=== PATIENT | female | born 1955 | race Caucasian/White ===

== ENCOUNTER 2017-03-01 02:02 | Inpatient (IN) | payer MEDICARE ==
--- NOTE | ~2017-03-01 | CR72 ---
[facility] A Service of [facility] RADIOLOGY TEXT RESULTS PATIENT: VIRGILIO GANN LOCATION: [place] [address] : [birth year] UNIT #: [id number] AGE: [address]: Altagracia Ramirez MD SEX: F ORDER DR: [id number] [facility] [address] [place], [place] [address] [id number] I MR#: [id number] Acc #: [id number] NAME: VIRGILIO GANN : 1955 SEX: F STUDY DATE/TIME: 03/04/2017 5:47 UNIT: [facility] ROOM: [facility] STUDY DESCRIPTION: CR Chest Single View Portable Attending Physician: Altagracia Ramirez M.D. Ordering Physician: Beti Fields M.D. Primary Care Physician: Tahir Brar M.D. MEDICAL IMAGING REPORT This report is preliminary unless electronic signature is present REVISED REPORT SEE ADDENDUM EXAM Portable AP view of the chest. COMPARISON March 03, 2017; March 02, 2017; and August 22, 2016. INDICATIONS 61-year-old female with dyspnea and low oxygen saturation for 3 days. Respiratory failure. FINDINGS AND IMPRESSION When comparing to chest radiograph of August 21, 2016; interstitial prominence throughout the lungs appears grossly stable. There is stable top normal heart size. Lungs are better aerated from yesterday. No pleural effusion or evidence of pneumothorax. No consolidative pneumonia. Lung opacities may be chronic. Correlation to exclude signs of pneumonia recommended. Dictated by... Selwyn Guy M.D. MANUEL/yohan TD: 03/04/2017 09:24 JOB #: [id number] ADDENDUM [facility] A Service of [facility] RADIOLOGY TEXT RESULTS PATIENT: VIRGILIO GANN LOCATION: [place] [address] : [birth year] UNIT #: [id number] AGE: [address]: Altagracia Ramirez MD SEX: F ORDER DR: Better demonstrated on radiographs of the right shoulder on March 01, 2017; there is a comminuted fracture at the junction of the right humeral head and neck, which is grossly stable. There is mild displacement, but no evidence of dislocation. Dictated by... Selwyn Guy M.D. THIS IS AN ELECTRONICALLY VERIFIED REPORT Selwyn Guy M.D. at 03/12/2017 8:52 PM MANUEL/yohan TD: 03/04/2017 09:28 JOB #: [id number] CC: Sonancy/invision Please Delete MEDICAL IMAGING REPORT Page 1 of 1 COPY
--- NOTE | ~2017-03-01 | CR173 ---
[facility] A Service of [facility] RADIOLOGY TEXT RESULTS PATIENT: VIRGILIO GANN LOCATION: [place] [address] : [birth year] UNIT #: [id number] AGE: [address]: Altagracia Ramirez MD SEX: F ORDER DR: [id number] [facility] [address]. [place], [place] [address] [id number] E MR#: [id number] Acc #: [id number] NAME: VIRGILIO GANN : 1955 SEX: F STUDY DATE/TIME: 03/01/2017 3:01 UNIT: [facility] ROOM: STUDY DESCRIPTION: CR Knee 3 Views Rt Attending Physician: Ethan Cool Aprn Ordering Physician: Ed Steven Ren M.D. Primary Care Physician: Tahir Brar M.D. MEDICAL IMAGING REPORT This report is preliminary unless electronic signature is present EXAM Right knee INDICATION Right knee pain after fall tonight. FINDINGS AP, lateral and sunrise views of the right knee were obtained. The right total knee prosthesis is present. There is no fracture identified. There is no effusion visible. IMPRESSION Previous right knee replacement, otherwise normal. Dictated by... Amadeo Larkin M.D. THIS IS AN ELECTRONICALLY VERIFIED REPORT Amadeo Larkin M.D. at 03/01/2017 1:39 PM CLARIBEL/estefania TD: 03/01/2017 04:10 JOB #: [id number] MEDICAL IMAGING REPORT Page 1 of 1 COPY
--- NOTE | ~2017-03-01 | CR94 ---
[facility] A Service of [facility] RADIOLOGY TEXT RESULTS PATIENT: VIRGILIO GANN LOCATION: [facility] : 57 UNIT #: [id number] AGE: [address]: Altagracia Ramirez MD SEX: F ORDER DR: [id number] [facility] [address]. [place], [place] [address] [id number] E MR#: [id number] Acc #: [id number] NAME: VIRGILIO GANN : 1955 SEX: F STUDY DATE/TIME: 03/01/2017 3:19 UNIT: [facility] ROOM: STUDY DESCRIPTION: CR Elbow Min 3 Views Rt Attending Physician: Ethan Cool Aprn Ordering Physician: Ed Steven Ren M.D. Primary Care Physician: Tahir Brar M.D. MEDICAL IMAGING REPORT This report is preliminary unless electronic signature is present EXAM Right elbow INDICATION Pain after fall tonight. FINDINGS AP and lateral examination of the elbow shows satisfactory articulation of the humerus with the proximal radius and ulna. There is no identifiable fracture, dislocation, joint effusion, or radiopaque foreign body in the soft tissues. IMPRESSION Normal elbow. Dictated by... Amadeo Larkin M.D. THIS IS AN ELECTRONICALLY VERIFIED REPORT Amadeo Larkin M.D. at 03/01/2017 1:39 PM CLARIBEL/estefania TD: 03/01/2017 04:13 JOB #: [id number] MEDICAL IMAGING REPORT Page 1 of 1 COPY
--- NOTE | ~2017-03-01 | CR72 ---
[facility] A Service of [facility] RADIOLOGY TEXT RESULTS PATIENT: VIRGILIO GANN LOCATION: [facility] 469- : [birth year] UNIT #: [id number] AGE: [address]: Altagracia Ramirez MD SEX: F ORDER DR: [id number] [facility] [address] [facility]. [place], [place] [address] [id number] I MR#: [id number] Acc #: [id number] NAME: VIRGILIO GANN : 1955 SEX: F STUDY DATE/TIME: 03/06/2017 5:32 UNIT: [facility] ROOM: [facility] STUDY DESCRIPTION: CR Chest Single View Portable Attending Physician: Altagracia Ramirez M.D. Ordering Physician: Beti Fields M.D. Primary Care Physician: Tahir Brar M.D. MEDICAL IMAGING REPORT This report is preliminary unless electronic signature is present EXAM AP portable chest. Date: 03/06/2017 HISTORY Respiratory failure, shortness breath and weakness for 5 days. Status post fall with shoulder fracture on 03/01/2017. COMPARISON AP portable chest 03/04/2017. FINDINGS Stable generalized mild cardiomediastinal enlargement. No dense lung consolidative changes are identified. There are mild interstitial thickening predominantly lung bases, not thought to be significantly changed compared to a more remote 08/22/2016 examination. No pleural effusion or pneumothorax is seen. Fracture of the right humeral head/neck again noted. IMPRESSION 1. Stable mild generalized cardiomediastinal enlargement. No acute chest findings. Chronic-appearing interstitial thickening in the bases. 2. Fracture of the right humeral head, neck again noted. Dictated by... Jessika Anthony M.D. THIS IS AN ELECTRONICALLY VERIFIED REPORT Jessika Anthony M.D. at 03/07/2017 2:00 PM LLH/gz [facility] A Service of [facility] RADIOLOGY TEXT RESULTS PATIENT: VIRGILIO GANN LOCATION: [facility] [id number] : [birth year] UNIT #: [id number] AGE: [address]: Altagracia Ramirez MD SEX: F ORDER DR: TD: 03/06/2017 11:14 JOB #: [id number] MEDICAL IMAGING REPORT Page 1 of 1 COPY
--- NOTE | ~2017-03-01 | CR142 ---
[facility] A Service of [facility] RADIOLOGY TEXT RESULTS PATIENT: VIRGIILO GANN LOCATION: [place] [address] : 57 UNIT #: [id number] AGE: [address]: Altagracia Ramirez MD SEX: F ORDER DR: [id number] [facility] [address] [facility]. [place], [place] [address] [id number] E MR#: [id number] Acc #: [id number] NAME: VIRGILIO GANN : 1955 SEX: F STUDY DATE/TIME: 03/01/2017 2:58 UNIT: [facility] ROOM: STUDY DESCRIPTION: CR Hand Min 3 Views Rt Attending Physician: Ethan Cool Aprn Ordering Physician: Ed Steven Ren M.D. Primary Care Physician: Tahir Brar M.D. MEDICAL IMAGING REPORT This report is preliminary unless electronic signature is present EXAM Right hand INDICATION Right hand pain after fall tonight. FINDINGS 3 views of the right hand were obtained. There is a metal plate and screws in the first metacarpal bone. No acute fracture is identified. IMPRESSION No evidence of acute injury. Dictated by... Amadeo Larkin M.D. THIS IS AN ELECTRONICALLY VERIFIED REPORT Amadeo Larkin M.D. at 03/01/2017 1:39 PM CLARIBEL/estefania TD: 03/01/2017 04:02 JOB #: [id number] MEDICAL IMAGING REPORT Page 1 of 1 COPY
--- NOTE | ~2017-03-01 | HP ---
Unit #: [id number] #: [id number] Patient: VIRGILIO GANN [id number] [facility] [address]. [place], [place] [address] [id number] I MR#: [id number] NAME: VIRGILIO GANN ROOM: [address] Age: 61 Sex: F Admission Date: 03/01/2017 : 1955 Attending Physician: Altagracia Ramirez M.D. Primary Care Physician: Tahir Brar M.D. HISTORY AND PHYSICAL DIAGNOSIS ON ADMISSION Right humeral fracture. HISTORY OF PRESENT ILLNESS 61-year-old female presented to [facility] with right arm pain. As per patient, she is getting her apartment fixed and is living in a hotel these days. She stated that at night she woke up to get to the restroom and slipped on her oxygen tubing and fell on right side. The patient was brought to the ER and workup was done and she was diagnosed with right humeral fracture. ER physician spoke with Dr. Lew's group and stated she was admitted to be evaluated by Dr. Power. The patient is currently complaining of right arm pain which is sharp, constant, nonradiating, severe, aggravated with slight movement or touch, relieved partially with pain medicine and associated weakness. She denies any headache or visual problem. There is no sore throat, sinus congestion or skin rash. The patient denies headache or visual problems. There is no recent weight loss or loss of appetite. The patient stated that her knee pain and neck pain is better. The rest of the review of systems is negative. PAST MEDICAL HISTORY 1. Severe COPD. 2. Chronic respiratory failure. The patient is on 6 L of O2. 3. Type 2 diabetes mellitus. 4. Gastroesophageal reflux disease. 5. Hypertension. 6. History of right colon mass, status post colectomy. 7. 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 The patient is on Coumadin. PAST SURGICAL HISTORY 1. The patient has history of right colectomy. 2. 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 3. Left foot surgery. 4. Left arm surgery. 5. Right knee replacement. 6. Hysterectomy. ALLERGIES Patient is allergic to sulfa and codeine. HOME MEDICATIONS The patient is on: Unit #: [id number] #: [id number] Patient: VIRGILIO GANN 1. Novolin N 70 units subcu b.i.d. 2. NovoLog 20 units t.i.d. 3. Lipitor 40 mg daily. 4. Coumadin 3 mg p.o. daily. 5. Lasix 40 mg daily. 6. Glucophage 500 mg b.i.d. 7. Atenolol 50 mg daily. 8. Lyrica 75 mg b.i.d. 9. Effexor 225 mg p.o. daily. 10. Potassium 20 mEq p.o. b.i.d. 11. Seroquel 200 mg p.o. q. h.s. 12. Flexeril 10 mg p.o. q.8 hours. 13. Symbicort 80/4.5 two puffs b.i.d. 14. ProAir two puffs q.4 hours p.r.n. SOCIAL HISTORY The patient is . She quit smoking around three years ago. Drinking. FAMILY HISTORY Positive for COPD. PHYSICAL EXAMINATION GENERAL: Patient is lying comfortably in bed, not in any obvious acute distress. VITAL SIGNS: Temperature 98 degrees, pulse is 105/minute, respiratory rate is 18/minute and blood pressure is 125/75. HEENT: No conjunctival congestion. Sclerae is not icteric. NECK: Supple. Trachea is central. RESPIRATORY: Decreased breath sounds bilaterally. There are no wheezes or crackles. HEART: Regular rate and rhythm. S1, S2. ABDOMEN: Soft, nontender. Bowel sounds are present in all four quadrants. NEUROLOGICAL: The patient is alert to person, place and time. The patient's strength is 5 out of 5 on left side and 4+ on right lower extremity and right upper extremity was not tested. SKIN: Warm and dry. DIAGNOSTIC STUDIES LABORATORY: Labs on admission - the patient's creatinine is 0.8, sodium is 138, potassium is 3.0. WBC 13.4, hemoglobin is 10.5, platelets is 287. IMAGING: CT scan of cervical spine reveals postop changes in left lower cervical spine as well as degenerative changes in the mid cervical spine. CT scan of head did not reveal any intracranial findings. Patient's right elbow x-ray was normal. Right knee x-ray revealed previous right knee replacement, otherwise normal. Right hand x-ray did not reveal any evidence of acute injury. Right shoulder x-ray revealed the humeral head was fractured and fragmented in at least two, if not three, parts. The patient's INR today was 1.9. Unit #: [id number] #: [id number] Patient: VIRGILIO GANN ASSESSMENT AND PLAN 61-year-old patient presented with fall and has right humeral fracture. 1. Right humeral fracture: Dr. Power will see patient in consultation. 2. Chronic respiratory failure. 3. Chronic obstructive pulmonary disease: Will request (1) to see patient in consultation for perioperative management. 4. Hyperlipidemia: Will continue home medications. 5. History of deep venous thrombosis: Will hold on Coumadin for now. 6. Insulin dependent diabetes mellitus: Start patient on half dose of Novolin NPH for now. 7. Depression: Will continue home medication. 8. Hypertension: Patient has already received (2) with sips of water. 9. Hypokalemia: Patient will receive potassium. The plan was discussed in detail with patient and her . They showed complete understanding. Dictated by Bia Gambino/trish TD: 03/01/2017 12:34 JOB #: [id number] HISTORY AND PHYSICAL Page 1 of 1 X Altagracia Ramirez MD X HISTORY AND PHYSICAL
--- NOTE | ~2017-03-01 | CO ---
Unit #: [id number] #: [id number] Patient: VIRGILIO GANN [id number] [address] [address] [id number] I MR#: [id number] NAME: VIRGILIO GANN ROOM: 11760 Age: 61 Sex: F Admission Date: 03/01/2017 : 1955 Attending Physician: Altagracia Ramirez M.D. Primary Care Physician: Tahir Brar M.D. CONSULTATION REPORT REASON FOR CONSULT Right shoulder fracture. HISTORY OF PRESENT ILLNESS Ms. Tyler Su is a 61-year-old female that presents today with a right fractured right humeral head. The patient reports that she tripped on her oxygen while staying at a motel. She has been waiting for some work to be done on her apartment complex. She lost her balance, tripped and landed on the right upper extremity. The patient reports pain at the right shoulder. No radiation of pain. No numbness or tingling. PAST MEDICAL HISTORY Significant for: 1. COPD. 2. Chronic respiratory failure. 3. Diabetes. 4. GERD. 5. Hypertension. 6. Right colon mass. 7. Right lower extremity DVT. MEDICATIONS Include: 1. NovoLog. 2. Novolin. 3. Lipitor. 4. Coumadin. 5. Lasix. 6. Glucophage. 7. Atenolol. 8. Lyrica. 9. Effexor. 10. Potassium. 11. Seroquel. 12. Flexeril. 13. Symbicort. 14. ProAir. ALLERGIES Sulfa and codeine. SURGICAL HISTORY Significant for: 1. Right colectomy. Unit #: [id number] #: [id number] Patient: VIRGILIO GANN 2. Abdominal surgery. 3. Left foot surgery. 4. Left arm surgery. 5. Right knee replacement. 6. Hysterectomy. SOCIAL HISTORY The patient lives at home. She is a former smoker and quit about three years ago. She does drink alcohol. FAMILY HISTORY Insignificant. REVIEW OF SYSTEMS Ten organ systems reviewed. Patient denies any blurry vision, congestion, sore throat, shortness of breath, chest pain, abdominal pain, urinary incontinence, numbness, tingling, skin ulcers or lesions, anxiety/depression. Positive for joint pain. PHYSICAL EXAMINATION GENERAL: No acute distress. Alert and oriented x3. VITALS: Temp 98, pulse 116, blood pressure 146/95. HEENT: PERRLA, nonicteric sclerae. THORAX: Trachea midline. No thyromegaly. CARDIAC: S1, S2. No extra sounds, no murmurs. LUNGS: Clear to auscultation without rales or rhonchi. ABDOMEN: Nondistended, nontender. Positive bowel sounds. : Deferred. MUSCULOSKELETAL: 2+ radial bilateral pulses. Tenderness to palpation over the right glenohumeral joint. No erythema or ecchymoses. Range of motion is deferred. NEUROLOGICAL: II-XII intact. S SKIN: Cool and dry. PSYCH: Good insight, good judgement. Mood and affect are pleasant. DIAGNOSTIC STUDIES IMAGING: X-rays of the right shoulder ordered and reviewed and shows a humeral head fracture. Right hand x-rays reveal no fractures. Right knee x-rays reveal no fractures. Right elbow x-rays reveal no fractures. ASSESSMENT Right humeral head fracture. PLAN Discussed the treatment options with both Dr. Power as well as the patient and family at the bedside. Dr. Power has recommended following up in one week as an outpatient to determine if surgery is required. Will currently wait for her swelling to go down and perform another x-ray in one week in our office. We will treat her with a sling at this time. She is to be non-weight bearing at the right upper extremity. Patient should remain in a sling at all times except for hygiene care. We will follow up in the office in one week. Unit #: [id number] #: [id number] Patient: VIRGILIO GANN Dictated by... Roxana Stark PAvis. for Guy Power M.D. JARVIS/trish TD: 03/01/2017 13:16 JOB #: [id number] CONSULTATION REPORT Page 1 of 1 X Roxana Stark CONSULTATION REPORT
--- NOTE | ~2017-03-01 | DS ---
Unit #: [id number] #: [id number] Patient: VIRGILIO GANN [id number] [address] [address] [id number] I MR#: [id number] NAME: VIRGILIO GANN ROOM: 469 Age: 61 Sex: F Admission Date: 03/01/2017 : 1955 Discharge Date: Attending Physician: Altagracia Ramirez M.D. Primary Care Physician: Tahir Brar M.D. DISCHARGE SUMMARY DIAGNOSIS ON ADMISSION Right humeral fracture. DIAGNOSES ON DISCHARGE 1. Right humeral fracture. 2. Acute on chronic respiratory failure, improved. 3. Chronic obstructive pulmonary disease exacerbation, improved. 4. Type 2 diabetes mellitus. 5. Gastroesophageal reflux disease. 6. Hypertension. 7. History of right lower extremity deep venous thrombosis on Coumadin. 8. Anemia. 9. Anxiety disorder. CONSULTATIONS 1. Dr. Power in orthopedic consultation. 2. Dr. Beti Fields and Dr. Perez in pulmonary consultation. DIAGNOSTIC STUDIES LABORATORY: Patient's creatinine was 0.7 today, sodium 133, potassium 4.8. WBC 19.8, hemoglobin 9.8, platelet count 321,000. INR was 2. IMAGING: CT scan of head was normal. Right elbow x-ray was normal. Right shoulder x-ray revealed a humeral head fracture fragmented in at least two or three pieces. CT scan of cervical spine revealed postoperative changes in left lower cervical spine as well as degenerative changes in mid cervical spine. There were no acute abnormalities. HOSPITAL COURSE A 61-year-old female was admitted to [facility] with right shoulder fracture. Details are as per admission H and P. Right humeral fracture: Patient was seen by orthopedic in consultation who thought patient is at high risk for surgery and has recommended nonoperative treatment. Acute on chronic respiratory failure: Patient is on 6 L of home O2 but her respiratory status deteriorated and she was transferred to ICU. Patient was seen by Dr. Perez in consultation and was treated with IV Unit #: [id number] #: [id number] Patient: VIRGILIO GANN Solu-Medrol and mini neb treatments. Patient's condition has improved. History of DVT: Patient is on Coumadin. Today patient is comfortable, is not in any acute distress. PHYSICAL EXAMINATION HEENT: Revealed no conjunctival congestion. Sclerae is nonicteric. NECK: Supple. Trachea central. RESPIRATORY: Revealed decreased breath sounds bilaterally. There are no wheezes or crackles. HEART: Regular rate and rhythm. S1, S2. ABDOMEN: Soft, nontender. Bowel sounds are present in all four quadrants. EXTREMITIES: Patient has right upper extremity sling. SKIN: Warm and dry. RECOMMENDATIONS ON DISCHARGE Condition is stable. Activity is as tolerated. MEDICATIONS 1. ProAir inhaler two puffs q.4 hours p.r.n. 2. Combivent mini neb treatment q.4 hours scheduled. 3. Symbicort 80/4.5 two puffs b.i.d. 4. Coumadin 3 mg p.o. daily. 5. Lyrica 75 mg p.o. b.i.d. 6. Effexor 225 mg p.o. daily. 7. Glucophage 500 mg p.o. daily. 8. Seroquel 50 mg p.o. nightly. 9. Atenolol 50 mg p.o. daily. 10. Dulcolax suppository 10 mg rectally daily p.r.n. 11. MiraLax 10 mg p.o. daily. 12. Lasix 40 mg p.o. daily. 13. Lipitor 40 mg p.o. nightly. 14. Humulin N 60 units NPH b.i.d. before meals. Patient's home dose is 70, so if Accu-Cheks are still high, kindly increase the dose. 15. NovoLog 20 units subcutaneous t.i.d. with meals. 16. Kindly do insulin sliding scale as per facility. Accu-Cheks a.c. and nightly. 17. Hydrocodone 5 mg one p.o. q.6 hours p.r.n. for pain. 18. Potassium 20 mEq p.o. daily. 19. Flexeril 10 mg p.o. q.8 hours p.r.n. for pain. FOLLOWUP 1. Patient is advised to follow up with Dr. Power this week on Monday, March 10, 2017. 2. Patient is discharged on oxygen 5 L via Oxymizer. At home, she uses 6 L via nasal cannula. Kindly, gradually wean patient's O2 off. Patient's box office clerk is Dr. Perez and Dr. Beti Fields. Patient can see them if needed. Please feel free to call us if there are any questions regarding this hospitalization. The plan has been discussed with orthopedics and pulmonology. The total time spent on discharge was 35 minutes. The prescription for Lyrica and [place] is written. Unit #: [id number] #: [id number] Patient: MAIN VIRGILIO RED Dictated by... Bia Gambino/shahla TD: 03/07/2017 11:51 JOB #: [id number] DISCHARGE SUMMARY Page 1 of 1 X Altagracia Ramirez MD X DISCHARGE SUMMARY
--- NOTE | ~2017-03-01 | CR72 ---
[facility] A Service of [facility] RADIOLOGY TEXT RESULTS PATIENT: VIRGILIO GANN LOCATION: [place] [address] : [birth year] UNIT #: [id number] AGE: [address]: Altagracia Ramirez MD SEX: F ORDER DR: [id number] [facility] [address] [facility] [place], [place] [address] [id number] I MR#: [id number] Acc #: [id number] NAME: VIRGILIO GANN : 1955 SEX: F STUDY DATE/TIME: 03/02/2017 0:28 UNIT: [facility] ROOM: [facility] STUDY DESCRIPTION: CR Chest Single View Portable Attending Physician: Altagracia Ramirez M.D. Ordering Physician: Gui Perez M.D. Primary Care Physician: Tahir Brar M.D. MEDICAL IMAGING REPORT This report is preliminary unless electronic signature is present EXAM Portable chest, 03/02/2017 INDICATION Low oxygen saturation and shortness of air since yesterday. COMPARISON 08/22/2016 FINDINGS A portable view of the chest was obtained. The heart size and vascularity are normal and the lungs are clear. There are low lung volumes. Bones are unremarkable. IMPRESSION Low lung volumes. No active disease. Dictated by... Amadeo Larkin M.D. THIS IS AN ELECTRONICALLY VERIFIED REPORT Amadeo Larkin M.D. at 03/02/2017 5:56 AM CLARIBEL/estefania TD: 03/02/2017 03:16 JOB #: [id number] MEDICAL IMAGING REPORT Page 1 of 1 COPY
--- NOTE | ~2017-03-01 | CR72 ---
[facility] A Service of [facility] & [facility] RADIOLOGY TEXT RESULTS PATIENT: VIRGILIO GANN LOCATION: [address] : [birth year] UNIT #: [id number] AGE: [address]: Altagracia Ramirez MD SEX: F ORDER DR: [id number] [facility] [address] [place], [place] [address] [id number] MR#: [id number] Acc #: [id number] NAME: VIRGILIO GANN : 1955 SEX: F STUDY DATE/TIME: 03/03/2017 5:17 UNIT: [facility] ROOM: [facility] STUDY DESCRIPTION: CR Chest Single View Portable Attending Physician: Altagracia Ramirez M.D. Ordering Physician: Beti Fields M.D. Primary Care Physician: Tahir Brar M.D. MEDICAL IMAGING REPORT This report is preliminary unless electronic signature is present EXAM Portable chest INDICATION Respiratory failure. Dropping oxygen saturation for 2 days. FINDINGS A portable view of the chest was obtained. The heart size and vascularity are normal. The lungs are clear. The comparison is from yesterday. IMPRESSION No change. No active disease. Dictated by... Amadeo Larkin M.D. THIS IS AN ELECTRONICALLY VERIFIED REPORT Amadeo Larkin M.D. at 03/03/2017 1:55 PM CLARIBEL/virgilio TD: 03/03/2017 06:29 JOB #: [id number] MEDICAL IMAGING REPORT Page 1 of 1 COPY
--- NOTE | ~2017-03-01 | CT71 ---
[facility] A Service of [facility] RADIOLOGY TEXT RESULTS PATIENT: VIRGILIO GANN LOCATION: [facility] [address] : [birth year] UNIT #: [id number] AGE: [address]: Altagracia Ramirez MD SEX: F ORDER DR: [id number] [facility] [address] [place], [place] [address] [id number] E MR#: [id number] Acc #: [id number] NAME: VIRGILIO GANN : 1955 SEX: F STUDY DATE/TIME: 03/01/2017 4:36 UNIT: [facility] ROOM: STUDY DESCRIPTION: CT Head Wo Contrast Attending Physician: Ethan Cool Aprn Ordering Physician: Ethan Cool Aprn Primary Care Physician: Tahir Brar M.D. MEDICAL IMAGING REPORT This report is preliminary unless electronic signature is present EXAM CT scan of the head without contrast INDICATION Tripped and fell at home. Head trauma. Headache. Happened today. COMPARISON 01/07/2011. FINDINGS Axial noncontrast images were obtained from the skull base to the vertex. This CT examination was performed with one or more of the following radiation dose reduction techniques: automatic exposure control, adjustment of mA and/or kV according to patient size, and iterative reconstruction. Ventricular size and configuration are normal. There is no evidence of acute infarct or hemorrhage. There are no extra-axial fluid collections. No mass lesion or mass effect is seen. There are no skull fractures. IMPRESSION Normal noncontrast head CT. Dictated by... Amadeo Larkin M.D. THIS IS AN ELECTRONICALLY VERIFIED REPORT Amadeo Larkin M.D. at 03/01/2017 1:39 PM CLARIBEL/virgilio TD: 03/01/2017 06:14 [facility] A Service of [facility] RADIOLOGY TEXT RESULTS PATIENT: VIRGILIO GANN LOCATION: [facility] [address] : [birth year] UNIT #: [id number] AGE: [address]: Altagracia Ramirez MD SEX: F ORDER DR: JOB #: [id number] MEDICAL IMAGING REPORT Page 1 of 1 COPY
--- NOTE | ~2017-03-01 | CR230 ---
[facility] A Service of [facility] & [facility] RADIOLOGY TEXT RESULTS PATIENT: VIRGILIO GANN LOCATION: [place] [address] : [birth year] UNIT #: [id number] AGE: [address]: Altagracia Ramirez MD SEX: F ORDER DR: [id number] [facility] [address] [place], [place] [address] [id number] E MR#: [id number] Acc #: [id number] NAME: VIRGILIO GANN : 1955 SEX: F STUDY DATE/TIME: 03/01/2017 2:54 UNIT: [facility] ROOM: STUDY DESCRIPTION: CR Shoulder Min 2 View Rt Attending Physician: Ethan Cool Aprn Ordering Physician: Ed Steven Ren M.D. Primary Care Physician: Tahir Brar M.D. MEDICAL IMAGING REPORT This report is preliminary unless electronic signature is present EXAM Right shoulder INDICATIONS Shoulder pain after falling tonight. FINDINGS 3 views of the right shoulder were obtained. There is a comminuted fracture involving the humeral head. There is no dislocation. IMPRESSION The humeral head has been fractured and fragmented in at least 2 if not 3 pieces. There is no dislocation. Dictated by... Amadeo Larkin M.D. THIS IS AN ELECTRONICALLY VERIFIED REPORT Amadeo Larkin M.D. at 03/01/2017 1:39 PM CLARIBEL/estefania TD: 03/01/2017 03:59 JOB #: [id number] MEDICAL IMAGING REPORT Page 1 of 1 COPY
--- NOTE | ~2017-03-01 | CO ---
Unit #: [id number] #: [id number] Patient: VIRGILIO GANN [id number] [place] [id number] [facility]. [place], [place] [address] [id number] I MR#: [id number] NAME: VIRGILIO GANN ROOM: [facility] Age: 61 Sex: F Admission Date: 03/01/2017 : 1955 Attending Physician: Altagracia Ramirez M.D. Primary Care Physician: Tahir Brar M.D. CONSULTATION REPORT HISTORY OF PRESENT ILLNESS This is a pleasant lady with a history of COPD severe, she is on 6 L of oxygen continuously. She now due to a bed bug infestation the patient has had to move out of her house into a hotel room. At the hotel, the patient states that she woke up, going to the restroom, she slipped on her oxygen tubing, fell on her right side. She developed a right humeral fracture. The Orthopedic doctors evaluated her for surgery. She is having very severe pain and is requiring significant doses of pain medicine 4 mg. The patient denies any sort of headache or visual issues. CT scan of the head is negative. No sore throat, sinus congestion, or skin rash. She denies any sort of sick contacts. No weight changes or loss of appetite. She had a spinal series, which did not show any acute fractures. 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 The patient is currently on Coumadin. PAST SURGICAL HISTORY The patient has a history of right colectomy, abdominal surgery complicated by abdominal wound, fistula, left foot surgery, left arm surgery, right knee replacement, hysterectomy. ALLERGIES The patient is allergic to sulfa and codeine. HOME MEDICATIONS Include Novolin N 70 units subcu b.i.d., NovoLog 20 units subcu t.i.d. before meals, Lipitor 40 mg daily, Coumadin 3 mg p.o. daily, Lasix 40 mg daily, Glucophage 500 mg b.i.d., Atenolol 50 mg daily, Lyrica 75 mg b.i.d., potassium 20 mEq daily, venlafaxine 255 mg p.o. daily, quetiapine 200 mg at bedtime, Flexeril 10 mg at bedtime, Symbicort 2 puffs b.i.d., ProAir RespiClick one puff every 4 hours as needed. SOCIAL HISTORY The patient is . She quit smoking approximately 3 years ago. Occasional alcohol use. FAMILY HISTORY Positive for COPD. PHYSICAL EXAMINATION GENERAL: The patient appears more comfortable, but is now somewhat Unit #: [id number] #: [id number] Patient: VIRGILIO GANN confused, although she is still able to give her name and date of and is oriented x3. VITAL SIGNS: T-current 98.3, pulse 89, respiratory rate 16, blood pressure 138/64. HEENT: No conjunctival injection. No icterus. NECK: No JVD. CHEST: Shows decreased breath sounds bilaterally. CARDIOVASCULAR: Regular rate. No gallop. ABDOMEN: Soft, nontender, and nondistended. EXTREMITIES: Shows no evidence of edema. DIAGNOSTIC STUDIES LABORATORY RESULTS: Glucose has run between 125 to 168. IMAGING STUDIES: X-ray of shoulder shows a humeral fracture and fragmentation. Knee shows previous right knee replacement. CT head without contrast, this is normal. Cervical spine CT shows chronic arthritis. LABORATORY RESULTS: Basic metabolic; potassium 3.0, chloride 99, BUN and creatinine 10/0.8. White count 13.4, hemoglobin 10.5, platelets of 287. INR is 1.9. ASSESSMENT AND PLAN 1. Pre-op evaluation for humeral fracture. This is probably going to be done as an outpatient. The patient is at moderate risk with a 13.3% risk of postoperative complications. The Arozullah and Dorsey scale index is suggest between a 0.5 and 1% chance of postoperative respiratory failure; however, the patient requires significant oxygen requirements makes her high risk. 2. The patient's altered mental status likely secondary to pain medication that she is receiving. 3. Hypoxia while asleep may be secondary to obstructive sleep apnea. 4. Chronic obstructive pulmonary disease. We are going to continue inhalers, continue medications. I am going to see if we can get a blood gas in the morning. The patient's INR is therapeutic, so it is unlikely that there is a fairly worsening hypoxia is due to blood clot. Thank you very much for this consult and allowing us to participate in the care of this patient. Please page me at [phone] if you have any questions. Dictated by... Bia Vazquez/roberto TD: 03/02/2017 01:24 JOB #: [id number] Unit #: [id number] #: [id number] Patient: VIRGILIO GANN CONSULTATION REPORT Page 1 of 1 X Santy Fields MD X CONSULTATION REPORT
--- NOTE | ~2017-03-01 | CT52 ---
[facility] A Service of [facility] RADIOLOGY TEXT RESULTS PATIENT: VIRGILIO GANN LOCATION: [facility] 46[facility] : [birth year] UNIT #: [id number] AGE: [address]: Altagracia Ramirez MD SEX: F ORDER DR: [id number] [place] [id number] [facility]. [place], [place] [address] [id number] MR#: [id number] Acc #: [id number] NAME: VIRGILIO GANN : 1955 SEX: F STUDY DATE/TIME: 03/01/2017 4:45 UNIT: [facility] ROOM: STUDY DESCRIPTION: CT Cervical Spine Wo Cont Attending Physician: Ethan Cool Aprn Ordering Physician: Ethan Cool Aprn Primary Care Physician: Tahir Brar M.D. MEDICAL IMAGING REPORT This report is preliminary unless electronic signature is present EXAM CT scan of the neck INDICATION Tripped and fell at home today with neck pain. FINDINGS Axial 2 mm images were obtained through the cervical spine and sagittal and coronal reconstructions were generated. This CT examination was performed with one or more of the following radiation dose reduction techniques: automatic exposure control, adjustment of mA and/or kV according to patient size, and iterative reconstruction. The patient has undergone a unilateral laminectomy on the left likely to C6-7. There is no subluxation or fracture. There is disc space narrowing in the mid cervical spine. IMPRESSION Postoperative changes on the left in the lower cervical spine as well as degenerative change in the mid cervical spine. There is no acute abnormality. Dictated by... Amadeo Larkin M.D. THIS IS AN ELECTRONICALLY VERIFIED REPORT Amadeo Larkin M.D. at 03/01/2017 1:39 PM CLARIBEL/virgilio TD: 03/01/2017 06:16 JOB #: [id number] [facility] A Service [facility] RADIOLOGY TEXT RESULTS PATIENT: VIRGILIO GANN LOCATION: [place] [address] : [birth year] UNIT #: [id number] AGE: [address]: Altagracia Ramirez MD SEX: F ORDER DR: MEDICAL IMAGING REPORT Page 1 of 1 COPY
--- NOTE | ~2017-03-01 | BMI ---
[facility] Nutrition Therapy DATE: 03/02/17 Patient: VIRGILIO RED Physician: PAWAN Address: [address] [facility] Room/Bed: [address], Zip: [place] [address] Admit Date: 03/01/17 Date of : [birth year] Height: 5 2 Weight: 251 113.85 HIGH BMI NOTE: DX: 61 y/o female admitted for possible broken arm or shoulder ANTHROPOMETRICS: 5'2", 250# (113 kg), BMI 45 DIET: Consistent Carbohydrate INTERVENTION: 1. Consistent carbohydrate diet RECOMMENDATIONS: 1. Add healthy heart diet to current consistent carbohydrate diet in order to promote gradual weight loss towards a healthy BMI (19.0-25.0) or +/-10% IBW. RD will f/u per protocol. Respectfully, MARCO BIGGS, statistics intern Lilly Bowman MS, RD, LD Food and Nutritional Services [facility] cc: client file
[~2017-03-01 02:02] MED LIST: ADVAIR 2501 DISK W/D PO; ADVIL200 M1 PO; ALBUTEROL 0.5ML; ALBUTEROL17 GM INH; ANTIVERT PO; ASPIRIN EC81 M1 PO; ASPIRIN81 MG PO; ATENOLOL PO; ATENOLOL50 MG PO; ATIVAN0.5 MG PO; ATROVENT HFA12.9 GM INH; B COMPLEX1 CA1 PO; CERTAGEN PO; CLARITIN10 MG PO; COMBIVENT INH14.7 GM INH; COUMADIN3 MG PO; CRANBERRY200 MG PO; DAZIDOX10 MG PO; DONNATAL E16.2 MG/5 PO; DOXYCYCLINE PO; EFFEXOR XR PO; FISH OIL500 MG PO; FLEXERIL PO; FLEXERIL10 MG PO; FLONASE 0.05% N16 G1; GLUCOPHAGE500 M1 PO; GUAIFEN-P-EPHE480 ML PO; IBUPROFEN PO; IBUPROFEN800 MG PO; K-DUR20 ME2 PO; KCL PO; KLOR-CON PO; LASIX PO; LEVAQUIN750 MG PO; LIPITOR20 MG PO; LYRICA PO; LYRICA75 MG PO; METFORMIN HCL500 M1 PO; MICRO-K PO; MONTELUKAST SOD10 MG PO; MORGIDOX100 MG PO; MUCINEX DM1 TAB.SR . PO; NOVOLIN 70100 UNITS/ SUBQ; NOVOLOG100 U/ML SUBQ; OMEGA 3 PO; OMNICEF PO; OPANA5 MG PO; OTC SINUS MED; OTC SLEEP MED; OXYCODONE HCL5 MG PO; PERCOCET 51 UDTAB 5/ PO; PHENERGAN PO; PHENERGAN12.5 MG PO; PHENERGAN25 MG PO; PRAVACHOL PO; PRAVASTATIN SOD40 MG PO; PREDNISONE PO; PREDNISONE10 MG; PRILOSEC40 MG PO; PROAIR HFA8.5 GM PO; PROTONIX PO; QUETIAPINE FUM200 MG PO; ROBITUSSIN COU118 M8; ROBITUSSIN-DM120 ML PO; SEROQUEL XR200 MG PO; SEROQUEL50 MG PO; SYMBICORT INH; TAMIFLU75 M1 PO; TENORMIN50 MG PO; TRAMADOL HCL50 M2; ULTRAM PO; VENLAFAXINE HC150 MG PO; VENLAFAXINE HC225 MG PO; VICODIN 5/1 TAB 5/50 PO; VICODIN 5/500 T1 TAB PO; VITAMIN D250000 UNIT PO; VOLTAREN75 MG PO; WARFARIN SODIUM3 MG PO; ZESTORETIC 10/11 TAB PO; ZITHROMAX PO
[2017-03-01 04:41] LABS: INR 1.9; PARTIAL THROMBOPLASTIN TIME 28.7 SECONDS (23.5-31.3); PROTHROMBIN TIME (PATIENT) 21.1 SECONDS (9.6-11.5)
[2017-03-01] MEDS ORDERED: NOVOLOG100 U/ML SUBQ (05:51)
[2017-03-01] MEDS ORDERED: NOVOLIN N100 UNIT/1 SUBQ (05:51)
[2017-03-01] MEDS ORDERED: LIPITOR40 MG PO (05:52)
[2017-03-01] MEDS ORDERED: GLUCOPHAGE500 MG PO (05:52)
[2017-03-01] MEDS ORDERED: LASIX PO (05:52)
[2017-03-01] MEDS ORDERED: ATENOLOL50 MG PO (05:52)
[2017-03-01] MEDS ORDERED: COUMADIN PO (05:52)
[2017-03-01] MEDS ORDERED: LYRICA75 MG PO (05:53)
[2017-03-01] MEDS ORDERED: EFFER-K 20 MEQ20 MEQ PO (05:53)
[2017-03-01] MEDS ORDERED: QUETIAPINE FUM200 MG PO (05:53)
[2017-03-01] MEDS ORDERED: VENLAFAXINE HC225 MG PO (05:53)
[2017-03-01] MEDS ORDERED: SYMBICORT80 INH (05:54)
[2017-03-01] MEDS ORDERED: FLEXERIL10 MG PO (05:54)
[2017-03-01] MEDS ORDERED: PROAIR RESPICL90 MCG INH (05:54)
[2017-03-01 06:30] LABS: BASOPHIL# 0.1 X10e3 (0-0.3); BASOPHIL% 0.9 % (0-2.5); EOSINOPHIL# 0.2 X10e3 (0-0.7); EOSINOPHIL% 1.2 % (0.0-7.0); HEMATOCRIT 31.9 % (35.0-45.0); HEMOGLOBIN 10.5 gm/dL (12.0-16.0); LYMPHOCYTE# 2.2 X10e3 (1.0-3.5); LYMPHOCYTE% 16.4 % (17.0-45.0); MEAN CELL VOLUME 78.1 FL (83-96); MEAN CORPUSCULAR HEMOGLOBIN 25.7 PG (28-34); MEAN CORPUSCULAR HGB CONC 32.9 g/dL (30-36); MEAN PLATELET VOLUME 8.9 FL (6.5-11.5); MONOCYTE# 1.1 X10e3 (0-1.0); MONOCYTE% 8.5 % (3.0-12.0); NEUTROPHIL# 9.8 X10e3 (1.5-7.1); PLATELET COUNT 287 X10e3 (140-420); RED BLOOD COUNT 4.08 X10e (3.90-5.30); RED CELL DISTRIBUTION WIDTH 16.6 % (11.0-15.5); WHITE BLOOD COUNT 13.4 X10e3 (4.0-10.5)
[2017-03-01 06:47] LABS: BUN/CREATININE RATIO 12.5; CALCIUM SERUM 8.7 mg/dL (8.4-10.2); CREATININE SERUM 0.8 mg/dL (0.6-1.4); GLOM FILT RATE Estimated 80.2 mL/min (>60)
[2017-03-01 06:50] LABS: DIFF IND NO
[2017-03-02 03:23] LABS: BASOPHIL# 0.1 X10e3 (0-0.3); BASOPHIL% 0.6 % (0-2.5); DIFF IND YES; EOSINOPHIL# 0.1 X10e3 (0-0.7); EOSINOPHIL% 0.3 % (0.0-7.0); HEMATOCRIT 32.5 % (35.0-45.0); HEMOGLOBIN 10.2 gm/dL (12.0-16.0); LYMPHOCYTE# 2.7 X10e3 (1.0-3.5); LYMPHOCYTE% 17.2 % (17.0-45.0); MEAN CELL VOLUME 79.2 FL (83-96); MEAN CORPUSCULAR HEMOGLOBIN 24.9 PG (28-34); MEAN CORPUSCULAR HGB CONC 31.4 g/dL (30-36); MEAN PLATELET VOLUME 8.5 FL (6.5-11.5); MONOCYTE# 1.1 X10e3 (0-1.0); MONOCYTE% 6.7 % (3.0-12.0); NEUTROPHIL# 11.9 X10e3 (1.5-7.1); NEUTROPHIL% 75.2 % (40-75); PLATELET COUNT 341 X10e3 (140-420); RED BLOOD COUNT 4.11 X10e (3.90-5.30); RED CELL DISTRIBUTION WIDTH 16.5 % (11.0-15.5); WHITE BLOOD COUNT 15.9 X10e3 (4.0-10.5)
[2017-03-02 03:39] LABS: INR 2.1; PROTHROMBIN TIME (PATIENT) 22.5 SECONDS (10.0-11.7)
[2017-03-02 03:51] LABS: ANISOCYTOSIS SL; MICROCYTOSIS SL; PLATELET ESTIMATE NORMAL (NORMAL)
[2017-03-02 03:52] LABS: STOMATOCYTE PRESENT
[2017-03-02 03:55] LABS: BUN/CREATININE RATIO 16.66; CALCIUM SERUM 8.9 mg/dL (8.4-10.2); CREATININE SERUM 0.9 mg/dL (0.6-1.4); GLOM FILT RATE Estimated 69.5 mL/min (>60); POTASSIUM 4.3 mmol/L (3.5-5.1)
[2017-03-02 04:04] LABS: ARTERIAL BLOOD GAS PCO2 64.5 mmHg (35.0-45.0); ARTERIAL BLOOD GAS pH 7.317 (7.350-7.450)
[2017-03-02 04:05] LABS: ARTERIAL BLD GAS O2 SATURATION 98.9 % (90.0-100.0); ARTERIAL BLOOD GAS ART SITE LEFT BRACHIAL; ARTERIAL BLOOD GAS CARBOXY HB 0.6 %sat (0.0-9.0); ARTERIAL BLOOD GAS MET HB 0.9 %sat (0.0-2.0); ARTERIAL DRAW? YES
[2017-03-02 09:13] LABS: ARTERIAL BLD GAS O2 SATURATION 93.5 % (90.0-100.0); ARTERIAL BLOOD GAS CARBOXY HB 0.7 %sat (0.0-9.0); ARTERIAL BLOOD GAS HCO3 32.6 mmol/L; ARTERIAL BLOOD GAS MET HB 0.8 %sat (0.0-2.0); ARTERIAL BLOOD GAS PCO2 57.3 mmHg (35.0-45.0); ARTERIAL BLOOD GAS PO2 68.7 mmHg (80.0-100); ARTERIAL BLOOD GAS pH 7.364 (7.350-7.450)
[2017-03-02 09:14] LABS: ARTERIAL BLOOD GAS ALLEN TEST NORMAL; ARTERIAL BLOOD GAS ART SITE LEFT RADIAL; ARTERIAL BLOOD GAS DELIVERY BIPAP 16/6; ARTERIAL DRAW? YES
[2017-03-03 05:33] LABS: BASOPHIL# 0.1 X10e3 (0-0.3); BASOPHIL% 0.8 % (0-2.5); EOSINOPHIL# 0.2 X10e3 (0-0.7); EOSINOPHIL% 1.6 % (0.0-7.0); HEMATOCRIT 30.1 % (35.0-45.0); HEMOGLOBIN 9.4 gm/dL (12.0-16.0); INR 2.2; LYMPHOCYTE# 4.6 X10e3 (1.0-3.5); LYMPHOCYTE% 29.8 % (17.0-45.0); MEAN CELL VOLUME 79.3 FL (83-96); MEAN CORPUSCULAR HEMOGLOBIN 24.7 PG (28-34); MEAN CORPUSCULAR HGB CONC 31.1 g/dL (30-36); MEAN PLATELET VOLUME 8.5 FL (6.5-11.5); MONOCYTE# 1.5 X10e3 (0-1.0); MONOCYTE% 9.7 % (3.0-12.0); NEUTROPHIL# 8.9 X10e3 (1.5-7.1); NEUTROPHIL% 58.1 % (40-75); PLATELET COUNT 289 X10e3 (140-420); PROTHROMBIN TIME (PATIENT) 23.6 SECONDS (10.0-11.7); WHITE BLOOD COUNT 15.3 X10e3 (4.0-10.5)
[2017-03-03 05:44] LABS: DIFF IND NO
[2017-03-03 07:04] LABS: ALBUMIN SERUM 3.5 g/dL (3.5-5.0); BILIRUBIN,TOTAL 0.9 mg/dL (0.2-2.0); BUN/CREATININE RATIO 21.42; CREATININE SERUM 0.7 mg/dL (0.6-1.4); GLOM FILT RATE Estimated 94.2 mL/min (>60); POTASSIUM 3.8 mmol/L (3.5-5.1); PROTEIN TOTAL SERUM 6.8 g/dL (6.0-8.3)
[2017-03-04 06:40] LABS: BASOPHIL% 0.1 % (0-2.5); HEMATOCRIT 31.1 % (35.0-45.0); HEMOGLOBIN 9.8 gm/dL (12.0-16.0); LYMPHOCYTE# 1.5 X10e3 (1.0-3.5); LYMPHOCYTE% 9.2 % (17.0-45.0); MEAN CELL VOLUME 79.3 FL (83-96); MEAN CORPUSCULAR HEMOGLOBIN 25.1 PG (28-34); MEAN CORPUSCULAR HGB CONC 31.7 g/dL (30-36); MEAN PLATELET VOLUME 9.2 FL (6.5-11.5); MONOCYTE# 0.5 X10e3 (0-1.0); MONOCYTE% 2.7 % (3.0-12.0); NEUTROPHIL# 14.6 X10e3 (1.5-7.1); PLATELET COUNT 306 X10e3 (140-420); RED BLOOD COUNT 3.92 X10e (3.90-5.30); RED CELL DISTRIBUTION WIDTH 16.6 % (11.0-15.5); WHITE BLOOD COUNT 16.6 X10e3 (4.0-10.5)
[2017-03-04 06:42] LABS: INR 1.7
[2017-03-04 06:57] LABS: DIFF IND NO
[2017-03-04 07:04] LABS: BUN/CREATININE RATIO 22.5; CREATININE SERUM 0.8 mg/dL (0.6-1.4); GLOM FILT RATE Estimated 80.2 mL/min (>60); MAGNESIUM 2.3 mg/dL (1.6-3.0); POTASSIUM 4.1 mmol/L (3.5-5.1)
[2017-03-05 04:30] LABS: BASOPHIL# 0.1 X10e3 (0-0.3); BASOPHIL% 0.3 % (0-2.5); EOSINOPHIL% 0.1 % (0.0-7.0); HEMATOCRIT 30.3 % (35.0-45.0); HEMOGLOBIN 9.6 gm/dL (12.0-16.0); LYMPHOCYTE# 1.9 X10e3 (1.0-3.5); LYMPHOCYTE% 8.1 % (17.0-45.0); MEAN CORPUSCULAR HGB CONC 31.6 g/dL (30-36); MEAN PLATELET VOLUME 9.3 FL (6.5-11.5); MONOCYTE# 0.8 X10e3 (0-1.0); MONOCYTE% 3.5 % (3.0-12.0); NEUTROPHIL# 21.1 X10e3 (1.5-7.1); PLATELET COUNT 323 X10e3 (140-420); RED BLOOD COUNT 3.83 X10e (3.90-5.30); RED CELL DISTRIBUTION WIDTH 16.6 % (11.0-15.5)
[2017-03-05 04:31] LABS: DIFF IND YES
[2017-03-05 04:44] LABS: ANISOCYTOSIS SL; HYPOCHROMIA SL; PLATELET ESTIMATE NORMAL (NORMAL)
[2017-03-05 04:45] LABS: HYPERSEGMENTED POLYS PRESENT; POLYCHROMASIA SL
[2017-03-05 04:56] LABS: BUN/CREATININE RATIO 36.25; CREATININE SERUM 0.8 mg/dL (0.6-1.4); GLOM FILT RATE Estimated 80.2 mL/min (>60); POTASSIUM 4.6 mmol/L (3.5-5.1)
[2017-03-05 12:53] LABS: PROTHROMBIN TIME (PATIENT) 21.9 SECONDS (10.0-11.7)
[2017-03-06 03:59] LABS: BASOPHIL# 0.1 X10e3 (0-0.3); BASOPHIL% 0.5 % (0-2.5); EOSINOPHIL% 0.2 % (0.0-7.0); HEMATOCRIT 30.8 % (35.0-45.0); HEMOGLOBIN 9.8 gm/dL (12.0-16.0); LYMPHOCYTE# 2.2 X10e3 (1.0-3.5); LYMPHOCYTE% 11.1 % (17.0-45.0); MEAN CELL VOLUME 78.8 FL (83-96); MEAN CORPUSCULAR HEMOGLOBIN 25.1 PG (28-34); MEAN CORPUSCULAR HGB CONC 31.9 g/dL (30-36); MEAN PLATELET VOLUME 9.5 FL (6.5-11.5); MONOCYTE# 0.9 X10e3 (0-1.0); MONOCYTE% 4.4 % (3.0-12.0); NEUTROPHIL# 16.6 X10e3 (1.5-7.1); NEUTROPHIL% 83.8 % (40-75); PLATELET COUNT 321 X10e3 (140-420); RED CELL DISTRIBUTION WIDTH 16.9 % (11.0-15.5); WHITE BLOOD COUNT 19.8 X10e3 (4.0-10.5)
[2017-03-06 04:00] LABS: DIFF IND NO
[2017-03-06 04:22] LABS: BUN/CREATININE RATIO 48.57; CREATININE SERUM 0.7 mg/dL (0.6-1.4); GLOM FILT RATE Estimated 94.2 mL/min (>60); MAGNESIUM 2.5 mg/dL (1.6-3.0); POTASSIUM 4.8 mmol/L (3.5-5.1)
[2017-03-06 14:50] LABS: INR 2.1; PROTHROMBIN TIME (PATIENT) 23.2 SECONDS (10.0-11.7)
[2017-03-07 04:21] LABS: PROTHROMBIN TIME (PATIENT) 21.6 SECONDS (10.0-11.7)
== END 2017-03-07 16:32 | DRG 562 ==
LOC: CED 02:02 → CEDOF 06:45 → CED 07:00 → CEDOF 07:00 → C4C 13:35 → CICCU2 03-02 11:05 → C4C 03-05 15:35
PROVIDERS: Internal Medicine; Internal Medicine Pulmonary Disease; Nurse Practitioner Family
DX: S42.301A Unspecified fracture of shaft of humerus, right arm, initial encounter for closed fracture (principal); J96.21 Acute and chronic respiratory failure with hypoxia; Z99.81 Dependence on supplemental oxygen; J44.1 Chronic obstructive pulmonary disease with (acute) exacerbation; Z68.42 Body mass index [BMI] 45.0-49.9, adult; W01.0XXA Fall on same level from slipping, tripping and stumbling without subsequent striking against object, initial encounter; Y93.9 Activity, unspecified; E11.9 Type 2 diabetes mellitus without complications; K21.9 Gastro-esophageal reflux disease without esophagitis; I10 Essential (primary) hypertension; Z86.718 Personal history of other venous thrombosis and embolism; Z79.01 Long term (current) use of anticoagulants; Z96.651 Presence of right artificial knee joint; Z90.710 Acquired absence of both cervix and uterus; Z88.2 Allergy status to sulfonamides; Z79.4 Long term (current) use of insulin; Z87.891 Personal history of nicotine dependence; F32.9 Major depressive disorder, single episode, unspecified; E87.6 Hypokalemia; Y92.59 Other trade areas as the place of occurrence of the external cause; G47.33 Obstructive sleep apnea (adult) (pediatric); R33.9 Retention of urine, unspecified; E66.01 Morbid (severe) obesity due to excess calories
CPT/HCPCS: 36415; 36600; 70450; 71010; 72125; 73030; 73080; 73130; 73562; 80048; 80053; 82308; 82803; 82947; 83735; 85025; 85610; 85730; 87070; 87633; 94640; 94660; 94760; 94761; 94762; 96374; 96375; 96376; 97161; 97166; 97530; 99285; G8978-GP; G8979-GP; G8987-GO; G8988-GO; J1650; J1815; J2270; J2405; J2920; J2930; J3475